=== PATIENT | female | born 1980 | race Caucasian/White ===

== ENCOUNTER 2021-11-05 11:13 | Emergency (ER) | payer MEDICAID ==
[~2021-11-05] VITALS: Ht 157.5 cm; Wt 79.5 kg
[2021-11-05 11:23] VITALS: BP 146/81
== END 2021-11-05 16:29 | disposition home or self-care (01) ==
LOC: ER 11:13
DX: Z00.00 Encounter for general adult medical examination without abnormal findings (principal); R07.0 Pain in throat; J45.909 Unspecified asthma, uncomplicated; F17.200 Nicotine dependence, unspecified, uncomplicated; F12.90 Cannabis use, unspecified, uncomplicated; Z72.89 Other problems related to lifestyle; Z85.89 Personal history of malignant neoplasm of other organs and systems
CPT/HCPCS: 99281

== ENCOUNTER 2022-02-06 11:29 | Day surgery (SDC) | payer MEDICAID ==
[~2022-02-06] VITALS: Ht 154.9 cm; Wt 78.6 kg
[2022-02-06 11:53] VITALS: BP 135/75
[2022-02-06] MEDS ORDERED: CHOL20004 PO (12:10)
[2022-02-06] MEDS ORDERED: HYDR-3686 PO (12:10)
[2022-02-06] MEDS ORDERED: METH-603 PO (12:10)
[2022-02-06] MEDS ORDERED: TRAZ-256 PO (12:10)
[2022-02-06] MEDS ORDERED: LIDOcaine 1% 30ml preserv. free vial SQ STA (12:16)
[2022-02-06 12:35] VITALS: BP 145/90
[2022-02-06 12:45] VITALS: BP 135/81
== END 2022-02-06 13:00 | disposition home or self-care (01) ==
LOC: SSTAY O 11:29
PROVIDERS: ATTEND Nurse Practitioner Family
DX: E04.1 Nontoxic single thyroid nodule (principal)
CPT/HCPCS: 10005; 60100; 76942

== ENCOUNTER 2022-02-15 09:20 | Emergency (ER) | payer MEDICAID ==
[~2022-02-15] VITALS: Ht 154.9 cm; Wt 79.0 kg
[~2022-02-15 09:20] MED LIST: CHOL20004 PO; HYDR-3686 PO; METH-603 PO; TRAZ-256 PO
[2022-02-15 09:35] VITALS: BP 131/74
[2022-02-15] MEDS ORDERED: NICO-503 PO (11:12)
[2022-02-15] MEDS ORDERED: CEPH250T PO (11:12)
== END 2022-02-15 12:02 | disposition home or self-care (01) ==
LOC: ER 09:21
DX: L73.9 Follicular disorder, unspecified (principal); F17.200 Nicotine dependence, unspecified, uncomplicated; J45.909 Unspecified asthma, uncomplicated; F12.90 Cannabis use, unspecified, uncomplicated
CPT/HCPCS: 99283

== ENCOUNTER 2022-02-27 09:15 | Day surgery (SDC) | payer MEDICAID ==
[~2022-02-27] VITALS: Ht 154.9 cm; Wt 78.4 kg
[~2022-02-27 09:15] MED LIST changes: +CEPH-585 PO; +NICO-503 PO
[2022-02-27 09:30] VITALS: BP 123/80
[2022-02-27] MEDS ORDERED: LIDOcaine 1% 30ml preserv. free vial SQ STA (09:32)
[2022-02-27] MEDS ORDERED: AMLO2.5T2 PO (09:40)
[2022-02-27] MEDS ORDERED: LISI5TAB22 PO (09:40)
--- NOTE | 2022-02-27 09:45 | NUR ---
Patient arrives and is very anxious and crying. Patient is trying to understand why she needs to come back for a second biopsy. Gage Ramirez PA at the bedside to explain the results of the first procedure. Patient states that her doctor insisted she come back in for second biopsy. Per provider notes, the patient insisted. Patient states that is not the case. Gage discussed the results with her and she decided not to have the second procedure. Patient getting dressed and ready to leave.
== END 2022-02-27 10:00 | disposition home or self-care (01) ==
LOC: SSTAY O 09:15
PROVIDERS: ATTEND Nurse Practitioner Family
DX: E04.1 Nontoxic single thyroid nodule (principal); Z53.8 Procedure and treatment not carried out for other reasons; F41.9 Anxiety disorder, unspecified; J45.909 Unspecified asthma, uncomplicated; F31.9 Bipolar disorder, unspecified; E78.5 Hyperlipidemia, unspecified; I10 Essential (primary) hypertension; Z72.89 Other problems related to lifestyle; F12.90 Cannabis use, unspecified, uncomplicated; F43.10 Post-traumatic stress disorder, unspecified; Z79.899 Other long term (current) drug therapy

== ENCOUNTER 2022-04-29 12:01 | Emergency (ER) | payer MEDICAID ==
[~2022-04-29] VITALS: Ht 156.2 cm; Wt 78.2 kg
[~2022-04-29 12:01] MED LIST changes: +AMLO2.5T2 PO; +LISI5TAB22 PO; -NICO-503 PO
[2022-04-29 12:46] VITALS: BP 138/63
[2022-04-29 14:37] LABS: URINE HCG NEGATIVE (NEG)
[2022-04-29 14:43] LABS: BASOPHILS # (AUTO) 0.1 X10'3 (0-0.2); BASOPHILS % (AUTO) 0.8 % (0-1); EOSINOPHILS # (AUTO) 0.1 X10'3 (0-0.9); EOSINOPHILS % (AUTO) 1.3 % (0-6); HEMATOCRIT 41.1 % (35.0-45.0); HEMOGLOBIN 13.7 g/dl (12.0-16.0); LYMPHOCYTES # (AUTO) 2.2 X10'3 (1.1-4.8); LYMPHOCYTES % (AUTO) 28.4 % (21-51); MEAN CORPUSCULAR HEMOGLOBIN 29.1 PG (27.0-31.0); MEAN CORPUSCULAR HGB CONC 33.3 g/dL (33.0-36.5); MEAN CORPUSCULAR VOLUME 87.2 FL (78-98); MEAN PLATELET VOLUME 7.3 FL (7.4-10.4); MONOCYTES # (AUTO) 0.6 X10'3 (0-0.9); MONOCYTES % (AUTO) 7.3 % (2-12); NEUTROPHILS # (AUTO) 4.8 X10'3 (1.8-7.7); NEUTROPHILS % (AUTO) 62.2 % (42-75); PLATELET COUNT 229 X10'3 (140-440); RED BLOOD COUNT 4.71 X10'6 (4.20-5.60); RED CELL DISTRIBUTION WIDTH 15.1 % (11.5-14.5); WHITE BLOOD COUNT 7.7 X10'3 (4.5-11.0)
[2022-04-29 14:46] LABS: CLARITY,URINE SLIGHTLY CLOUDY (Clear); COLOR,URINE YELLOW (Yellow); GLUCOSE, URINE NEGATIVE (Neg); KETONES,URINE NEGATIVE (Neg); LEUKOCYTE ESTERASE ,URINE NEGATIVE (Neg); NITRITES, URINE NEGATIVE (Neg); OCCULT BLOOD,URINE LARGE (Neg); PH,URINE 5.5 (4.8-8.0); PROTEIN,URINE NEGATIVE (Neg); UROBILINOGEN,URINE 0.2 E.U/dL (0.2-1.0)
[2022-04-29 14:47] LABS: UA COLLECTION TYPE CLN CATCH MIDSTREAM
[2022-04-29 14:49] LABS: ALANINE AMINOTRANSFERASE 25 U/L (12-78); ALBUMIN 3.8 G/DL (3.4-5.0); ALBUMIN/GLOBULIN RATIO 1.1 (1.1-1.5); ALKALINE PHOSPHATASE 72 IU/L (46-116); ANION GAP 2 (8-16); ASPARTATE AMINO TRANSFERASE 24 U/L (10-37); BILIRUBIN,TOTAL 0.3 MG/DL (0.1-1.0); BLOOD UREA NITROGEN 11 MG/DL (7-18); BUN/CREATININE RATIO 15.1 (6.6-38.0); CHLORIDE 109 MMOL/L (99-107); CREATININE 0.73 MG/DL (0.40-0.90); GLUCOSE 88 MG/DL (70-104); POTASSIUM 4.6 MMOL/L (3.5-5.1); SODIUM 141 MMOL/L (135-145); TOTAL CARBON DIOXIDE 29.9 MMOL/L (24-32); TOTAL PROTEIN 7.3 G/DL (6.4-8.2); eGFR 87 ML/MIN
[2022-04-29 14:56] LABS: BACTERIA,URINE NONE SEEN /HPF (Neg); MUCUS STRANDS FEW /LPF (Neg); RBC,URINE 50-100 /HPF (0-2); SQUAMOUS EPITHELIAL CELL,UR FEW /LPF (FEW); WBC,URINE 0-4 /HPF (0-4)
--- NOTE | 2022-04-29 15:00 | NUR ---
US TECH AT BEDSIDE.
== END 2022-04-29 15:40 | disposition home or self-care (01) ==
LOC: ER 12:01
DX: N92.0 Excessive and frequent menstruation with regular cycle (principal); I10 Essential (primary) hypertension; J45.909 Unspecified asthma, uncomplicated; F12.90 Cannabis use, unspecified, uncomplicated; Z72.89 Other problems related to lifestyle; Z79.899 Other long term (current) drug therapy
CPT/HCPCS: 36415; 76856; 80053; 81001; 81025; 85025; 93976; 99284

== ENCOUNTER 2024-05-20 19:46 | Emergency (ER) | payer MEDICAID ==
[~2024-05-20] VITALS: Ht 154.9 cm; Wt 77.3 kg
[~2024-05-20 19:46] MED LIST changes: -CEPH-585 PO
[2024-05-20 19:48] VITALS: BP 155/82; PULSE 91; O2SAT 97
[2024-05-20 20:37] VITALS: RESP 16
[2024-05-20] MEDS: ketorolac trometh 15mg/ml vial 15 MG/ML ML IM ONE (20:37)
[2024-05-20 21:09] VITALS: TEMP 98.7
== END 2024-05-20 21:11 | disposition home or self-care (01) ==
LOC: ER 19:46
DX: M79.672 Pain in left foot (principal); J45.909 Unspecified asthma, uncomplicated; I10 Essential (primary) hypertension; F12.90 Cannabis use, unspecified, uncomplicated; Z79.899 Other long term (current) drug therapy; Z72.89 Other problems related to lifestyle
CPT/HCPCS: 73610; 96372; 99284; J1885

== ENCOUNTER 2024-07-04 16:11 | Emergency (ER) | payer MEDICAID ==
[~2024-07-04] VITALS: Ht 154.9 cm; Wt 67.4 kg
[2024-07-04 16:13] VITALS: BP 163/76; PULSE 67; TEMP 99; O2SAT 98
[2024-07-04 18:15] VITALS: RESP 16
--- NOTE | 2024-07-04 18:30 | Physician Documentation ---
History of Present Illness ~ General Chief Complaint: Multiple Medical Complaints Stated Complaint: HEADACHES AND CONSTIPATED Time Seen by MD: 18:00 Primary Medical Doctor: [facility] History of Present Illness Initial Comments Patient is seen today with complaints of multiple head strike over the last five or so days. Patient denies any loss of consciousness and denies any changes in vision or nausea or vomiting. Patient denies any memory loss. She states she has not had a bowel movement in about five or so days. She has taken a few doses of MiraLax without success. Patient states she does take methadone 20 mg by mouth daily. She has no other concern or complaint at this time. Medication Reconciliation Allergies: Coded Allergies: No Known Allergies (Unverified , 05/20/24) Scheduled Amlodipine* (Norvasc*), 4 TAB PO DAILY, (Reported) Cholecalciferol (Vitamin D), 1 TAB PO Q7D, (Reported) Lisinopril (Lisinopril), 1 TAB PO DAILY, (Reported) Methadone Hcl* (Dolophine*), 20 MG PO DAILY, (Reported) Methylnaltrexone Amagon (Relistor), 1 SYR SUBCUT DAILY Sennosides/Docusate Sodium (Senna Plus 8.6-50 mg Tablet), 2 TAB PO BID Trazodone HCl (Trazodone HCl), 1 TAB PO HS, (Reported) Scheduled PRN Hydroxyzine Hcl* (Atarax*), 1 TAB PO Q8H PRN for anxiety, (Reported) Past Medical History Past Medical History: Hypertension, Asthma Past Surgical History: no surgical history Alcohol Use: Occasionally Drug Use: marijuana Lives In: Home Review of Systems Constitutional: Denies: chills, fever, weakness Eyes: Denies: pain, blurred vision ENT: Denies: ear pain, nose pain, throat pain, mouth pain Respiratory: Denies: cough, shortness of breath Cardiovascular: Denies: chest pain, palpitations Gastrointestinal: Denies: abdominal pain, nausea, vomiting Genitourinary: Denies: burning, dysuria Female Genitalia: Denies: vaginal discharge, pelvic pain Neurological: Denies: headache, dizziness Musculoskeletal: Denies: pain, swelling Integumentary: Denies: rash, lesions Allergic/Immunologic: Denies: hives, itching Hematologic/Lymphatic: Denies: no symptoms reported Psychiatric: Denies: depression, anxiety Physical Exam Physical Exam Vital Signs: Temperature: 99.0, Source: Temporal, Heart Rate: 67, Respiratory Rate: 15, BP: 163/76, Pulse Oximetry: 98, Weight: 67.400 Physical Exam General: Awake and Alert, no acute distress. HEENT: Conjunctiva pink, Sclera clear, Mucus Membranes moist. I do not appreciate any visible sign of trauma to the face or scalp or occiput. 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 Neck: Supple without masses and tenderness. Resp: Unlabored. Lungs clear to auscultation bilaterally. Heart: Regular Rate and rhythm, normal S1 and S2 without murmur, rub or gallop. Abdomen: Soft and non tender no organomegaly Extremities: No cyanosis,clubbing or edema. Skin: Warm and Dry. Progress Results/Orders Results/Orders Completed Orders - CANDELARIA FUNG PAC Sennosides/Docusate Sodium Tab (Senna-S (07/04/24 18:26) Magnesium Hydrox Oral Susp. (Milk Of Mag (07/04/24 18:26) Methylnaltrexone Br Inj (Relistor Inj (07/04/24 18:55) Vital Signs 07/04/24 07/04/24 16:13 18:15 Temp 99.0 Pulse 67 Resp 15 16 B/P (MAP) 163/76 Pulse Ox 98 Medical Decision Making Findings Patient was given some sprite soda and was able to swallow successfully and states he felt the licorice pass through and go down successfully. Patient is very grateful for the passage of the licorice. Shared decision-making utilized today. Patient will return to ED with any worsening, concerning or changing symptoms. Patient was given dose of senna tablets x2, milk of magnesia, and Relistor subQ injection in the ED today. Prescription of senna and Relistor sent to patient pharmacy. Patient will return to ED with any worsening, concerning or changing symptoms. Follow up with primary care in 2-5 days if no better as needed sooner. Shared decision-making utilized today. Postconcussive protocol discussed with the patient at length. Departure Disposition: HOME / SELF CARE / HOMELESS Impression: Primary Impression: Concussion Qualified Codes: S06.0X0A - Concussion without loss of consciousness, initial encounter Additional Impressions: Constipation Qualified Codes: K59.03 - Drug induced constipation Constipation due to opioid therapy Condition: Improved Discharge Instructions: Concussion, Adult, [id number], Constipation, Adult, [id number] Additional Instructions: Patient was given dose of senna tablets x2, milk of magnesia, and Relistor subQ injection in the ED today. Prescription of senna and Relistor sent to patient pharmacy. Patient will return to ED with any worsening, concerning or changing symptoms. Follow up with primary care in 2-5 days if no better as needed sooner. Shared decision-making utilized today. Postconcussive protocol discussed with the patient at length. Referrals: NO PRIMARY CARE PROVIDER (PCP) Prescriptions Sennosides/Docusate Sodium (Senna Plus 8.6-50 mg Tablet) 8.6 Mg-50 Mg Tablet 2 TAB PO BID for 7 Days, #28 TAB 0 Refills Prov: CANDELARIA FUNG 07/04/24 Methylnaltrexone Amagon (Relistor) 12 Mg/0.6 Ml Syringe 1 SYR SUBCUT DAILY for 30 Days, #18 ML 0 Refills Prov: CANDELARIA FUNG 07/04/24 Signature Scribe Signature: No scribe Attestation: No scribe CANDELARIA FUNG July 04, 2024 18:30
[2024-07-04] MEDS: magnesium hydroxide 30ml (MOM) UD suspension PO STA (18:57)
[2024-07-04] MEDS: sennosides/docusate sodium tablet PO STA (18:57)
[2024-07-04] MEDS ORDERED: SENN-302 PO (18:59)
[2024-07-04] MEDS ORDERED: METH12DI SUBCUT (18:59)
[2024-07-04] MEDS: methylnaltrexone br 12mg/0.6ml inj***SubQ only SQ STA (19:06)
== END 2024-07-04 19:48 | disposition home or self-care (01) ==
LOC: ER 16:11
DX: S06.0X0A Concussion without loss of consciousness, initial encounter (principal); T40.2X5A Adverse effect of other opioids, initial encounter; K59.03 Drug induced constipation; I10 Essential (primary) hypertension; J45.909 Unspecified asthma, uncomplicated; F12.90 Cannabis use, unspecified, uncomplicated; W22.8XXA Striking against or struck by other objects, initial encounter; Y93.89 Activity, other specified; Y92.89 Other specified places as the place of occurrence of the external cause; Y99.8 Other external cause status
CPT/HCPCS: 96372; 99284; J2212